=== PATIENT | female | born 1985 | race Caucasian/White ===

== ENCOUNTER 2017-05-20 22:56 | Observation (INO) | payer BC, SELFPAY ==
[2017-05-20 23:03] VITALS: BP 138/110; PULSE 85; RESP 20; TEMP 37.1; O2SAT 99; BMI 34.0
--- NOTE | 2017-05-20 23:24 | HMH.EDPREG ---
ED Disposition Clinical Impression: Abdominal pain Qualifiers: Abdominal location: right lower quadrant Qualified Code(s): R10.31 - Right lower quadrant pain Qualifiers: Weeks of gestation: 20 weeks Qualified Code(s): Z3A.20 - 20 weeks gestation of Disposition: Admitted as Observation Condition on Discharge: Good Referrals: Soham Le MD [Primary Care Provider] - - Critical Care Critical Care Time: No Attestation: On , the high probability of a clinically significant, sudden or life threatening deterioration of the following system(s) required my full and direct attention, intervention and personal management. The time I documented below is in addition to time spent performing reported procedures but includes the following listed in this critical care notation. Medical Decision Making - Medical Records Medical records reviewed: Yes: I reviewed the patient's medical records. Vital Signs: 05/20/17 23:03 05/21/17 00:23 05/21/17 01:16 Temperature 98.7 F Temperature Source Oral Pulse Rate [Right Brachial] 85 82 91 H Respiratory Rate 20 20 18 Blood Pressure [Right Arm] 138/110 98/62 95/49 Blood Pressure Mean [Right Arm] 119 74 64 Blood Pressure Source [Right Arm] Automatic Cuff Automatic Cuff Automatic Cuff Blood Pressure Position [Right Arm] Supine Supine Supine 02 Sat by Pulse Oximetry 99 99 99 Oxygen Delivery Method Room Air Room Air Room Air - Lab Data Lab results reviewed: Yes: I reviewed the patient's lab results. Lab Results 05/20/17 23:30: Urine Color Yellow, Urine Appearance Clear, Urine pH 6.0, Ur Specific [place] 1.020, Urine Protein Negative, Urine Glucose (UA) Negative, Urine Ketones Negative, Urine Blood 2+, Urine Nitrate Negative, Urine Bilirubin Negative, Urine Urobilinogen 0.2, Ur Leukocyte Esterase Negative, Urine RBC 5-10, Urine WBC 3-5, Ur Squamous Epith Cells 3-5, Amorphous Sediment 1+, Urine Bacteria 1+, Urine Mucus 1+ 05/20/17 23:30: WBC 13.4 H, RBC 3.84 L, Hgb 12.7, Hct 36.4 L, MCV 94.7, MCH 33.0 H, MCHC 34.9, RDW 13.5, Plt Count 365, MPV 7.2 L, Neut % (Auto) 76.2, Lymph % (Auto) 19.1, [place] % (Auto) 2.8, Eos % (Auto) 1.7, Baso % (Auto) 0.3, Neut # (Auto) 10.2 H, Lymph # (Auto) 2.6, [place] # (Auto) 0.4, Eos # (Auto) 0.2, Baso # (Auto) 0.0 05/20/17 23:30: Sodium 137, Potassium 3.9, Chloride 105, Carbon Dioxide 23, Anion Gap 12.9, BUN 10, Creatinine 0.76, Estimated Creat Clear 136, Estimated GFR > 60, Est GFR ( Amer) > 60, Glucose 139 H, Calcium 8.6, Total Bilirubin 0.4, AST 16, ALT 23, Alkaline Phosphatase 90, Total Protein 6.6, Albumin 2.8 L, Globulin 3.8 H, Albumin/Globulin Ratio 0.7 L Result diagrams: 05/20/17 23:30 05/20/17 23:30 Orders (Tests/Meds): ED MEDICATIONS Generic Name Dose Route Start Last Admin Trade Name Freq PRN Reason Stop Dose Admin Sodium Chloride 10 ml 05/20/17 23:18 Saline Flush 10ml Syringe IV 06/19/17 23:17 NEEDED PRN Maintain IV Site Discontinued Medications Generic Name Dose Route Start Last Admin Trade Name Freq PRN Reason Stop Dose Admin Morphine Sulfate 5 mg 05/21/17 00:05 05/21/17 00:18 Morphine 10mg/Ml Syringe IV 05/21/17 00:06 5 mg ONCE ONE Administration Promethazine HCl 12.5 mg 05/21/17 00:07 05/21/17 00:15 Phenergan 25mg/Ml 1ml Vial IV 05/21/17 00:08 12.5 mg ONCE ONE Administration Sodium Chloride 25 ml 05/21/17 00:07 Sod Chloride 0.9% 25ml Bag IV 05/21/17 00:08 ONCE ONE Sodium Chloride 0 ml 05/21/17 00:08 05/21/17 00:13 Sod Chloride 0.9% 1000ml Bag IV 05/21/17 00:09 3,000 ml BOLUS ONE Administration - Physician Consults Physician Consulted: shay Time: 01:34 Reason -: Admission - Minor Inquiry Pt receiving controlled substance: No HPI - General Chief complaint: Abdominal Pain Stated complaint: 20 wk pred Abd Pains Time Seen by Provider: 05/20/17 23:24 Mode of Arrival: Ambulatory Source of Informat
[2017-05-20 23:38] LABS: Basophils % 0.3 % (0.1-2.0); Eosinophils # 0.2 K/mm3 (0.0-0.4); Eosinophils % 1.7 % (0.1-12.0); Hematocrit 36.4 % (37.0-47.0); Hemoglobin 12.7 g/dL (12.2-16.2); Lymphocytes # 2.6 K/mm3 (0.7-4.5); Lymphocytes % 19.1 K/mm3 (10-50); Mean Corpuscular HGB Conc 34.9 g/dL (31.8-35.4); Mean Corpuscular Volume 94.7 fl (81-99); Mean Platelet Volume 7.2 fl (7.4-10.4); Monocytes # 0.4 K/mm3 (0.1-1.0); Monocytes % 2.8 % (1.7-9.3); Neutrophils # 10.2 K/mm3 (1.8-7.8); Neutrophils % 76.2 % (37.0-80.0); Platelet Count 365 K/mm3 (142-424); Red Blood Count 3.84 M/mm3 (4.20-5.40); Red Cell Distribution Width 13.5 % (11.5-17.5); White Blood Count 13.4 K/mm3 (4.8-10.8)
[2017-05-20 23:40] LABS: Microscopic, Urine URINE MICROSCOPIC (MICROSCOPIC)
[2017-05-20 23:41] LABS: Appearance,Urine CLEAR (Clear); Bilirubin,Urine Negative (Negative); Blood, Urine 2+ (Negative); Color,Urine YELLOW (Yellow); Glucose,Urine (UA) Negative (Negative); Ketones,Urine Negative (Negative); Leukocyte Esterase,Urine Negative (Negative); Nitrate,Urine Negative (Negative); Protein,Urine Negative (Negative); Urobilinogen,Urine 0.2 EU/dl (0.2)
[2017-05-20 23:52] LABS: Alanine Aminotransferase 23 U/L (12-78); Albumin Level 2.8 gm/dL (3.4-5.0); Albumin/Globulin Ratio 0.7 (1.1-1.8); Alkaline Phosphatase 90 U/L (46-116); Anion Gap 12.9 mEq/L (5-15); Aspartate Amino Transferase 16 U/L (15-37); Bilirubin,Total 0.4 mg/dL (0.2-1.0); Blood Urea Nitrogen 10 mg/dL (7-18); Calcium 8.6 mg/dL (8.5-10.1); Carbon Dioxide 23 mmol/L (21.0-32.0); Chloride 105 mmol/L (98-107); Creatinine Clearance Estimated 136 mg/ml (0-300); Creatinine,Serum 0.76 mg/dL (0.55-1.02); Estimated Glomerular Filt Rate > 60 ml/min (>60); GFR (African American) > 60 ML/MIN (>60); Globulin 3.8 gm/dl (1.3-3.2); Glucose 139 mg/dL (74-106); Potassium 3.9 mmoL/L (3.5-5.1); Sodium 137 mmol/L (136-145); Total Protein,Serum 6.6 gm/dL (6.4-8.2)
--- NOTE | 2017-05-21 | US_ITS ---
US OB >= 14 weeks Fetus: INDICATION: 20 week anatomy scan ITS.REASON: ANATOMY SCAN ORDERING PHYSICIAN: Dinesh Rogers MD PATIENT AGE: 32 years TECHNIQUE: ultrasound transabdominal scanning. COMPARISON: No previous relevant studies. FINDINGS: Single viable intrauterine gestation. Cephalic position. Placenta: Anterior placenta grade 1. There is average amount fluid. The cervix appears satisfactory. Closed and measuring 5 cm. There is some increased echogenicity along the lower aspect of the endocervical canal in length. Complete survey performed and was unremarkable on the submitted images as in PACS. No discrete anomalies identified on survey imaging by technologist. Active fetus. Three-vessel cord with satisfactory umbilical cord insertion. 4- chamber heart noted. Survey of brain & ventricles. Face and neck survey unremarkable. Diaphragm and chest views unremarkable. Abdomen: Both kidneys noted and unremarkable. Stomach noted and satisfactory. Spine: Survey of the spine satisfactory with no anomalies identified nor imaged. Both arms and legs noted. Amniotic Fluid: Adequate. Maternal adnexa: No significant findings. Measurements: Average ultrasound age 20 weeks 2 days. Gestational Age 19 weeks 6 days. Estimated due date by ultrasound age 510/06/2017. Estimated weight 337 grams. This is 65th percentile based on last menstrual period BPD = 20 weeks 1 day OFD = 21 weeks 0 days HC = 20 weeks 0 days AC = 20 weeks 4 days FL = 20 weeks 0 days Heart Rate = 153 BPM Cerebellum = 20 weeks 2 days Humerus = 20 weeks 5 days HC/AC is 1.14. CI is 74%. FL/BPD is 68%. FL/AC is 21%. IMPRESSION: There is a single live fetus and supine presentation with an average ultrasound age of 20 weeks 2 days and estimated due date of 10/06/2017. No obvious anomalies. All parameters correlate. Please see above for detail
[2017-05-21 00:07] LABS: Amorphous Sediment,Urine 1+ /lpf; Bacteria,Urine 1+ /lpf; Mucus,Urine 1+ /lpf
[2017-05-21 00:23] VITALS: BP 98/62; PULSE 82; RESP 20; O2SAT 99
--- NOTE | 2017-05-21 01:15 | PC.NURSE ---
CASE DISCUSSED WITH DR NUNEZ. TO BE ADMITTED ENRI[facility] TO ENRIQUE WITH DX ABDOMINAL PAIN
[2017-05-21 01:16] VITALS: BP 95/49; PULSE 91; RESP 18; O2SAT 99
--- NOTE | 2017-05-21 01:58 | PC.NURSE ---
TO BE ADMITTED TO ROOM 279. REPORT GIVEN TO GURDEEP LINDSEY RN. TRANSFERRED TO ROOM PER W/C. CONDITION STABLE.
[2017-05-21 01:59] VITALS: BP 95/49; PULSE 91; RESP 20; O2SAT 99
--- NOTE | 2017-05-21 02:03 | US_ITS ---
US retroperitoneal comp HISTORY: Right-sided flank pain ITS.REASON: renal colic ORDERING PHYSICIAN: Dinesh Rogers MD PATIENT AGE: 32 years COMPARISON: None FINDINGS: RIGHT KIDNEY:Unremarkable. Normal size and echogenicity. There is mild ectasia of the right renal collecting system. LEFT KIDNEY:Unremarkable. No hydronephrosis. Normal size and echogenicity. OTHER FINDINGS: No other pertinent findings IMPRESSION: Mild dilatation of the right renal collecting system otherwise negative bilateral renal ultrasound
[2017-05-21 02:59] VITALS: BP 104/65; PULSE 95; RESP 18; TEMP 36.9; O2SAT 97; BMI 34.0
[2017-05-21 07:35] LABS: Basophils % 0.2 % (0.1-2.0); Eosinophils # 0.2 K/mm3 (0.0-0.4); Eosinophils % 1.2 % (0.1-12.0); Hematocrit 32.1 % (37.0-47.0); Lymphocytes # 3.3 K/mm3 (0.7-4.5); Lymphocytes % 24.5 K/mm3 (10-50); Mean Corpuscular HGB Conc 34.1 g/dL (31.8-35.4); Mean Corpuscular Hemoglobin 32.4 pg (27.0-31.2); Mean Corpuscular Volume 95.2 fl (81-99); Mean Platelet Volume 7.3 fl (7.4-10.4); Monocytes # 0.5 K/mm3 (0.1-1.0); Monocytes % 3.7 % (1.7-9.3); Neutrophils # 9.4 K/mm3 (1.8-7.8); Neutrophils % 70.4 % (37.0-80.0); Platelet Count 314 K/mm3 (142-424); Red Blood Count 3.38 M/mm3 (4.20-5.40); Red Cell Distribution Width 13.4 % (11.5-17.5); White Blood Count 13.3 K/mm3 (4.8-10.8)
[2017-05-21 07:52] LABS: Hemoglobin 11.1 g/dL (12.2-16.2)
--- NOTE | 2017-05-21 09:12 | HMH.ACPN ---
Internal Medicine - PN: Subj *Date: 05/21/17 *Time: 09:12 Interval history: She was seen in the ER last night and was having severe right lower quadrant pain. She did receive 1 dose of morphine. She is doing better this morning. She has a history of kidney stones. Exam Vital signs and Labs for Last 24 Hours: Temp Pulse Resp BP Pulse Ox 98.5 F 95 H 18 104/65 97 05/21/17 02:59 05/21/17 02:59 05/21/17 02:59 05/21/17 02:59 05/21/17 02:59 Short CBC 05/21/17 Range/Units 06:22 WBC 13.3 H (4.8-10.8) K/mm3 Hgb 11.1 L D (12.2-16.2) g/dL Hct 32.1 L (37.0-47.0) % Plt Count 314 (142-424) K/mm3 no acute distress - *Routine Abdominal Exam Present: soft (She is a little tender along the round ligaments bilaterally)
--- NOTE | 2017-05-21 13:44 | P.DS_ITS ---
General - General Admission date: 05/21/17 Discharge date: 05/21/17 HPI HPI: She was admitted last night with flank pain and right lower quadrant pain. She had 2+ but in her urine. As result of her right lower quadrant pain she was admitted for observation. Objective Vital signs: Temp Pulse Resp BP Pulse Ox 98.5 F 95 H 18 104/65 97 05/21/17 02:59 05/21/17 02:59 05/21/17 02:59 05/21/17 02:59 05/21/17 02:59 no acute distress Hospital Course Hospital Course: She had an ultrasound of her flanks that were normal. There was some mild hydronephrosis on the results of a complete ultrasound of the fetus was done as well and the anatomy was normal. She is feeling better. Results Labs on day of discharge: Labs from last 24 hours 05/21/17 06:22 WBC 13.3 H RBC 3.38 L Hgb 11.1 L D Hct 32.1 L MCV 95.2 MCH 32.4 H MCHC 34.1 RDW 13.4 Plt Count 314 MPV 7.3 L Neut % (Auto) 70.4 Lymph % (Auto) 24.5 [place] % (Auto) 3.7 Eos % (Auto) 1.2 Baso % (Auto) 0.2 Neut # (Auto) 9.4 H Lymph # (Auto) 3.3 [place] # (Auto) 0.5 Eos # (Auto) 0.2 Baso # (Auto) 0.0 DS: Diagnosis - Discharge Diagnosis (1) Abdominal pain Status: Acute (2) Status: Acute Meds Home Medications Medication Instructions Recorded Confirmed Type Prenat Vit Comb.10/Iron/FA/Dha 1 each PO DAILY 05/20/17 05/20/17 History [Vitafol-Ob+Dha Combo Pack] Allergies Allergy/AdvReac Type Severity Reaction Status Date / Time From Penicillin V Potassium Allergy Unknown Uncoded 05/06/17 14:42 Penicillin Allergy Unknown Uncoded 05/06/17 14:42 Disposition Disposition: Home, Self-Care
== END 2017-05-21 14:45 | disposition home or self-care (01) ==
LOC: ER 05-21 01:37 → OB 05-21 01:48
PROVIDERS: Admitting Provider Nurse Practitioner Obstetrics & Gynecology; Emergency Provider Emergency Medicine; Family Provider Internal Medicine Adolescent Medicine; PCP Internal Medicine Adolescent Medicine; Visit Provider Nurse Practitioner Obstetrics & Gynecology
DX: O26.892 Other specified pregnancy related conditions, second trimester (principal); Z3A.20 20 weeks gestation of pregnancy; R10.31 Right lower quadrant pain; N13.30 Unspecified hydronephrosis; Z87.442 Personal history of urinary calculi
CPT/HCPCS: 76770; 76805; 80053; 81001; 85025; 99284; G0378

== ENCOUNTER → 2017-07-05 08:36 | Outpatient (CLI) | payer BC, SELFPAY ==
[2017-07-05 10:40] LABS: Glucose 1 Hour 177 mg/dL
== END ==
PROVIDERS: PCP Internal Medicine Adolescent Medicine; Visit Provider Nurse Practitioner Obstetrics & Gynecology
DX: Z34.90 Encounter for supervision of normal pregnancy, unspecified, unspecified trimester (principal)
CPT/HCPCS: 36415

== ENCOUNTER → 2017-07-07 12:10 | Outpatient (CLI) | payer BC, SELFPAY ==
[2017-07-07 15:30] VITALS: BP 122/68; PULSE 84; RESP 20; TEMP 36.6; O2SAT 98
== END ==
PROVIDERS: Family Provider Internal Medicine Adolescent Medicine; PCP Internal Medicine Adolescent Medicine; Visit Provider Nurse Practitioner Obstetrics & Gynecology
DX: Z34.90 Encounter for supervision of normal pregnancy, unspecified, unspecified trimester (principal)
CPT/HCPCS: 36415; 96372; J2790

== ENCOUNTER → 2017-07-12 07:53 | Outpatient (CLI) | payer BC, SELFPAY ==
[2017-07-12 08:11] LABS: Glucose,Fasting 86 mg/dL (60-105)
[2017-07-12 10:19] LABS: Glucose 1 Hour 180 mg/dL (74-106)
[2017-07-12 10:42] LABS: Glucose 2 Hour 161 mg/dL (74-106)
[2017-07-12 11:36] LABS: Glucose 3 Hour 68 mg/dL (74-106)
== END ==
PROVIDERS: Visit Provider Nurse Practitioner Obstetrics & Gynecology
DX: Z34.90 Encounter for supervision of normal pregnancy, unspecified, unspecified trimester (principal)
CPT/HCPCS: 81002; 82951; 82952

== ENCOUNTER 2017-08-20 14:19 | Outpatient (CLI) | payer BC, SELFPAY ==
[2017-08-20 14:43] VITALS: BMI 37.0
[2017-08-20 14:44] VITALS: BP 126/69; PULSE 103; RESP 16; TEMP 36.7; O2SAT 96; BMI 37.0
== END 2017-08-20 15:01 | disposition home or self-care (01) ==
LOC: OBOUT 14:26 → OB 14:39
PROVIDERS: PCP Nurse Practitioner Obstetrics & Gynecology; Referring Provider Nurse Practitioner Obstetrics & Gynecology; Visit Provider Nurse Practitioner Obstetrics & Gynecology
DX: Z34.90 Encounter for supervision of normal pregnancy, unspecified, unspecified trimester (principal)
CPT/HCPCS: 96372

== ENCOUNTER 2017-08-21 18:18 | Outpatient (CLI) | payer BC, SELFPAY ==
[2017-08-21 19:57] VITALS: BP 115/76; PULSE 99; RESP 16; TEMP 36.8; O2SAT 100
== END 2017-08-21 19:20 | disposition home or self-care (01) ==
LOC: OBOUT 18:22 → OB 18:24
PROVIDERS: PCP Nurse Practitioner Obstetrics & Gynecology; Visit Provider Nurse Practitioner Obstetrics & Gynecology
DX: O24.410 Gestational diabetes mellitus in pregnancy, diet controlled (principal); O40.3XX0 Polyhydramnios, third trimester, not applicable or unspecified; Z3A.33 33 weeks gestation of pregnancy
CPT/HCPCS: 96372

== ENCOUNTER → 2017-09-08 19:38 | Outpatient (REF) | payer BC, SELFPAY | LOC: LAB 19:38 | PROVIDERS: Visit Provider Nurse Practitioner Obstetrics & Gynecology | DX: Z34.90 Encounter for supervision of normal pregnancy, unspecified, unspecified trimester (principal) | CPT/HCPCS: 86403 ==

== ENCOUNTER 2017-09-12 17:50 | Outpatient (CLI) | payer BC, SELFPAY ==
[2017-09-12 18:20] VITALS: BP 140/74; PULSE 100; RESP 20; TEMP 36.8; O2SAT 97; BMI 37.8
[2017-09-12 20:01] LABS: Microscopic, Urine URINE MICROSCOPIC (MICROSCOPIC)
[2017-09-12 20:03] LABS: Appearance,Urine CLEAR (Clear); Bilirubin,Urine Negative (Negative); Blood, Urine TRACE-I (Negative); Color,Urine YELLOW (Yellow); Glucose,Urine (UA) Negative (Negative); Ketones,Urine 2+ (Negative); Leukocyte Esterase,Urine TRACE (Negative); Nitrate,Urine Negative (Negative); PH,Urine 6.5 (5.0-8.5); Protein,Urine Negative (Negative); Urobilinogen,Urine 0.2 EU/dl (0.2)
[2017-09-12 20:09] LABS: Bacteria,Urine 2+ /lpf; RBC,Urine Occasional #/hpf (0-3); WBC,Urine Occasional #/hpf (0-3)
[2017-09-12 20:13] LABS: Amphetamine/Metha Screen,Urine Negative ng/mL (<1000); Barbiturates Screen,Urine Negative ng/mL (<200); Benzodiazepines Screen,Urine Negative ng/mL (200); Cannabinoid Screen,Urine Negative ng/mL (<50); Cocaine Screen,Urine Negative ng/g (<300); Methadone Screen,Urine Negative ng/mL (<300); Opiate Screen,Urine Negative ng/mL (<300); Phencyclidine Screen,Urine Negative ng/mL (<25)
== END 2017-09-12 22:09 | disposition home or self-care (01) ==
LOC: OBOUT 17:51 → OB 17:51
PROVIDERS: PCP Internal Medicine Adolescent Medicine; Visit Provider Obstetrics & Gynecology
DX: O47.00 False labor before 37 completed weeks of gestation, unspecified trimester (principal); Z3A.36 36 weeks gestation of pregnancy
CPT/HCPCS: 59025; 80305; 81001; 87086; 96360; 96361; 96372; J0595

== ENCOUNTER 2017-09-29 22:35 | Inpatient (IN) | payer BC, SELFPAY ==
[2017-09-29 21:54] VITALS: BMI 36.3
[2017-09-29 22:12] LABS: Microscopic, Urine URINE MICROSCOPIC (MICROSCOPIC)
[2017-09-29 22:13] LABS: Appearance,Urine CLEAR (Clear); Bilirubin,Urine Negative (Negative); Blood, Urine 2+ (Negative); Color,Urine YELLOW (Yellow); Glucose,Urine (UA) Negative (Negative); Ketones,Urine Negative (Negative); Leukocyte Esterase,Urine TRACE (Negative); Nitrate,Urine Negative (Negative); PH,Urine 6.5 (5.0-8.5); Protein,Urine Negative (Negative); Specific Gravity, Urine <= 1.005 (1.005-1.030); Urobilinogen,Urine 0.2 EU/dl (0.2)
[2017-09-29 22:14] VITALS: BP 146/83; PULSE 110; RESP 18; TEMP 37.1; O2SAT 97; BMI 36.3
[2017-09-29 22:24] LABS: Fetal Membrane Rupture (Rapid) Positive (Negative)
[2017-09-29 22:31] LABS: Bacteria,Urine 1+ /lpf; Squamous Epithelial Cell,Urine 20-50 #/hpf (0-5)
[2017-09-29 23:12] LABS: Basophils % 0.2 % (0.1-2.0); Eosinophils # 0.3 K/mm3 (0.0-0.4); Eosinophils % 2.1 % (0.1-12.0); Hematocrit 33.9 % (37.0-47.0); Hemoglobin 11.6 g/dL (12.2-16.2); Lymphocytes # 3.7 K/mm3 (0.7-4.5); Lymphocytes % 23.7 K/mm3 (10-50); Mean Corpuscular HGB Conc 34.4 g/dL (31.8-35.4); Mean Corpuscular Hemoglobin 31.6 pg (27.0-31.2); Mean Platelet Volume 6.9 fl (7.4-10.4); Monocytes # 0.5 K/mm3 (0.1-1.0); Monocytes % 3.4 % (1.7-9.3); Neutrophils # 10.9 K/mm3 (1.8-7.8); Neutrophils % 70.6 % (37.0-80.0); Platelet Count 463 K/mm3 (142-424); Red Blood Count 3.68 M/mm3 (4.20-5.40); White Blood Count 15.4 K/mm3 (4.8-10.8)
[2017-09-29 23:15] LABS: POC Glucose,Bedside 85 (70-110)
[2017-09-29 23:19] LABS: MANUAL DIFFERENTIAL MANUAL DIFFERENTIAL (MANUAL DIFF)
[2017-09-30 00:17] LABS: Anisocytosis 1+; Eosinophils % 2 % (0-3); Lymphocytes % 28 % (10-50); Monocytes % 1 % (2-9); Neutrophils % 69 % (42-76); Platelet Estimate Normal; Total Cells Counted 100
[2017-09-30 04:54] LABS: POC Glucose,Bedside 96 (70-110)
--- NOTE | 2017-09-30 08:05 | HMH.OBAPHP ---
OB - H&P: HPI Antepartum - History of Present Illness Chief complaint: Contractions, gestational diabetes History of present illness: She is a 32-year-old 3 para 2 who was 37+ weeks gestational age. She came in having regular contractions every 2 minutes. She is also a gestational diabetic that is diet controlled. - History of Present Criteria for establishing EDC:: LMP confirmed by 1st trimester US care: good care Ultrasounds: normal 1st trimester US, normal mid trimester US Obstetrical complications: gestational diabetes Medical complications: none [facility] History I have reviewed the patient's past medical history: Yes Medical History: Denies:: Cancer, Diabetes Mellitus Type 1, Diabetes Mellitus Type 2, MRSA Other Surgeries: No: Amputation: No Fractures: No - *Social History Smoking Status: Former smoker Tobacco Type: cigarettes Alcohol Intake: never Substance Use Type: denies use Occupational Status: employed Housing: house Household Members: spouse, children *Family Hx:: Hypertension, Hyperlipidemia, Cancer, Diabetes Para: 2 Review of Systems - Review of Systems Review of systems:: pertinent systems reviewed and negative unless documented below Meds Home Medications Medication Instructions Recorded Confirmed Type Prenat Vit Comb.10/Iron/FA/Dha 1 each PO DAILY 05/20/17 09/29/17 History [Vitafol-Ob+Dha Combo Pack] Blood Sugar Diagnostic [Blood 0 katty .ROUTE .MEDSUPPLY 08/20/17 09/29/17 History Glucose Test Strip] Ferrous Sulfate [Ferrous Sulfate 325 mg PO DAILY 08/20/17 09/29/17 History 325mg Tablet] Lancets 0 syr .ROUTE .MEDSUPPLY 08/20/17 09/29/17 History Allergies Allergy/AdvReac Type Severity Reaction Status Date / Time Penicillins Allergy Unknown Verified 09/25/17 09:27 allergy reaction OB - H&P: Exam - Physical Exam Vital signs: Temp Pulse Resp BP Pulse Ox 98.7 F 110 H 18 146/83 97 09/29/17 22:14 09/29/17 22:14 09/29/17 22:14 09/29/17 22:14 09/29/17 22:14 - Constitutional no acute distress - Routine HEENT Exam Head: Present: normocephalic - Routine Neck Exam Present: supple - Routine Respiratory Exam Comments: She is breathing normally and is in no respiratory distress. - Routine Exam Comments: Her cervix is 4 cm dilated and 75% effaced. The head is -3. I inserted and IUPC and clip. I ruptured her membranes and there was thin meconium. - Routine Skin Exam Present: intact - Routine Neurological Exam Present: alert - Routine Psychiatric Exam Present: normal affect OB - Results - Labs Labs: Short CBC 09/29/17 Range/Units 22:55 WBC 15.4 H (4.8-10.8) K/mm3 Hgb 11.6 L (12.2-16.2) g/dL Hct 33.9 L (37.0-47.0) % Plt Count 463 H (142-424) K/mm3 Urine 09/29/17 Range/Units 21:51 Urine Color Yellow (Yellow) Urine Appearance Clear (Clear) Urine pH 6.5 (5.0-8.5) Ur Specific [place] <= 1.005 (1.005-1.030) Urine Protein Negative (Negative) Urine Glucose (UA) Negative (Negative) OB - A/P Antepartum (1) Gestational diabetes Current visit: No Status: Acute - Additional Plan Planning to breastfeed?: Yes Plan: expectant management Additional Information:: She has had her membranes ruptured with thin meconium. We will have Dr. Loera available for the delivery. She has an epidural and we will expect a vaginal delivery.
--- NOTE | 2017-09-30 08:08 | P.HP_ITS ---
OB - H&P: HPI Antepartum - History of Present Illness Chief complaint: Contractions, gestational diabetes History of present illness: She is a 32-year-old 3 para 2 who was 37+ weeks gestational age. She came in having regular contractions every 2 minutes. She is also a gestational diabetic that is diet controlled. - History of Present Criteria for establishing EDC:: LMP confirmed by 1st trimester US care: good care Ultrasounds: normal 1st trimester US, normal mid trimester US Obstetrical complications: gestational diabetes Medical complications: none [facility] History I have reviewed the patient's past medical history: Yes Medical History: Denies:: Cancer, Diabetes Mellitus Type 1, Diabetes Mellitus Type 2, MRSA Other Surgeries: No: Amputation: No Fractures: No - *Social History Smoking Status: Former smoker Tobacco Type: cigarettes Alcohol Intake: never Substance Use Type: denies use Occupational Status: employed Housing: house Household Members: spouse, children *Family Hx:: Hypertension, Hyperlipidemia, Cancer, Diabetes Para: 2 Review of Systems - Review of Systems Review of systems:: pertinent systems reviewed and negative unless documented below Meds Home Medications Medication Instructions Recorded Confirmed Type Prenat Vit Comb.10/Iron/FA/Dha 1 each PO DAILY 05/20/17 09/29/17 History [Vitafol-Ob+Dha Combo Pack] Blood Sugar Diagnostic [Blood 0 katty .ROUTE .MEDSUPPLY 08/20/17 09/29/17 History Glucose Test Strip] Ferrous Sulfate [Ferrous Sulfate 325 mg PO DAILY 08/20/17 09/29/17 History 325mg Tablet] Lancets 0 syr .ROUTE .MEDSUPPLY 08/20/17 09/29/17 History Allergies Allergy/AdvReac Type Severity Reaction Status Date / Time Penicillins Allergy Unknown Verified 09/25/17 09:27 allergy reaction OB - H&P: Exam - Physical Exam Vital signs: Temp Pulse Resp BP Pulse Ox 98.7 F 110 H 18 146/83 97 09/29/17 22:14 09/29/17 22:14 09/29/17 22:14 09/29/17 22:14 09/29/17 22:14 - Constitutional no acute distress - Routine HEENT Exam Head: Present: normocephalic - Routine Neck Exam Present: supple - Routine Respiratory Exam Comments: She is breathing normally and is in no respiratory distress. - Routine Exam Comments: Her cervix is 4 cm dilated and 75% effaced. The head is -3. I inserted and IUPC and clip. I ruptured her membranes and there was thin meconium. - Routine Skin Exam Present: intact - Routine Neurological Exam Present: alert - Routine Psychiatric Exam Present: normal affect OB - Results - Labs Labs: Short CBC 09/29/17 Range/Units 22:55 WBC 15.4 H (4.8-10.8) K/mm3 Hgb 11.6 L (12.2-16.2) g/dL Hct 33.9 L (37.0-47.0) % Plt Count 463 H (142-424) K/mm3 Urine 09/29/17 Range/Units 21:51 Urine Color Yellow (Yellow) Urine Appearance Clear (Clear) Urine pH 6.5 (5.0-8.5) Ur Specific [place] <= 1.005 (1.005-1.030) Urine Protein Negative (Negative) Urine Glucose (UA) Negative (Negative) OB - A/P Antepartum (1) Gestational diabetes Current visit: No Status: Ac
--- NOTE | 2017-09-30 10:05 | HMH.ANESCL ---
[facility] Anesthesia Checklist - Structural Data Admitted From: Home Planned Operative Procedure/s: labor epidural Consent for Planned Operative Procedure(s) Verified: Yes - Airway Assessment C-Spine Mobility Assessed: Yes TMJ Mobility Assessed: Yes Dentition: Good Dentition - Neurological Assessment Level of Consciousness: Awake, Alert, Appropriate - Anesthesia Plan Anesthesia Risk discussed: Yes Anesthesia Plan: Verified ASA Class: II Anesthesia Type: Epidural [facility] Anesthesia HX I have reviewed the patient's past medical history: Yes Medical History: Denies:: Cancer, Diabetes Mellitus Type 1, Diabetes Mellitus Type 2, MRSA Other Surgeries: No: Amputation: No Fractures: No *Family Hx:: Hypertension, Hyperlipidemia, Cancer, Diabetes
--- NOTE | 2017-09-30 11:04 | HMH.LABNOT ---
Labor Note - Subjective: Date: 09/30/17 Time: 11:04 regular contraction - Objective: NST:: Reactive Contractions:: every 2-3 minutes Cervical Dilation:: 9-10 Effacement:: 100% Station: 0 Membranes: articially ruptured - Fetus: Monitoring?: Yes monitoring type:: Internal - Assessment: Labor progressing?: Yes Cephalopelvic disproportion?: No Patient Problems: All Active Problems Gestational diabetes (Acute) Abdominal pain (Acute) (Acute) - Plan: Anesthesia for epidural?: Yes Continue to labor down?: Yes Plan for ?: No Continue to monitor?: Yes Start pushing?: No Comment:: She is doing well. She does have some early decelerations with contractions. She just has an anterior lip although the baby's head is still slightly high. We will have her bear down with contractions. She does feel a lot of pressure.
[2017-09-30 12:11] LABS: Cord Blood PH 7.33 (7.35-7.45)
--- NOTE | 2017-09-30 12:22 | HMH.DN ---
- Delivery Note Delivery Date:: 09/30/17 Delivery Time:: 11:57 Anesthesia Type: Epidural Was labor medically induced?: No Induction method: none Gestational age (weeks): 37 delivered prior to 39 weeks?: Yes Justification for early elective delivery:: Active Labor Infant Gender: Female at 1 minute: 8 at 5 minutes: 9 AF:: Thin meconium Delivery Procedure:: She is a 32-year-old 3 para 2 who was 37-1/2 weeks gestational age. She came in in active labor with regular contractions every 2 minutes. Her cervix had changed to 3 cm. She had her membranes ruptured on the morning of September 30, 2017 and there was thin meconium. Under labor epidural she progressed to full dilation and delivered spontaneously a liveborn female child at 11:57 AM on the morning of September 30, 2017. On deliver the head it was noted that there was a loose nuchal cord. This was easily reduced. Using a DeLee suction I suctioned the baby's mouth and nares. This was followed by deliver the rest the infant's body atraumatically. The cord was clamped and cut and the was handed off to Dr. Loera who assigned Apgars of 8 at 1 and 9 at 5 minutes. We then obtained cord blood as well as cord pH. The pH is currently pending. Using gentle traction on the cord and countertraction on the fundus I was able to easily deliver the placenta intact. He had a normal three-vessel cord. There were no perineal or vaginal lacerations. Her estimated blood loss was approximately 400 cc. Placental Delivery Description: Spontaneous
[2017-09-30 19:30] VITALS: BP 116/59; PULSE 86; RESP 18; TEMP 36.8; O2SAT 99
[2017-10-01 05:46] LABS: Hematocrit 28.8 % (37.0-47.0); Hemoglobin 10.1 g/dL (12.2-16.2)
--- NOTE | 2017-10-01 07:29 | HMH.ACPN2 ---
Internal Medicine - PN: Subj *Date: 10/01/17 *Time: 07:29 Interval history: She is doing very well today. She is eating and taking and ambulating. She is breast-feeding. Her lochia is normal. Exam Vital signs and Labs for Last 24 Hours: Temp Pulse Resp BP Pulse Ox 98.2 F 86 18 116/59 99 09/30/17 19:30 09/30/17 19:30 09/30/17 19:30 09/30/17 19:30 09/30/17 19:30 Laboratory Results - last 24 hr 09/30/17 12:00: Cord ABG pH 7.33 L 10/01/17 05:20: Hgb 10.1 L, Hct 28.8 L 10/01/17 05:20: Blood Type A Negative, Antibody Screen Negative, Screen Negative, Baby's Rh Status Positive 10/01/17 07:20: Rhogam Infusion Rhogam release I & O for Last 24 hours: Intake & Output 09/28/17 09/29/17 09/30/17 10/01/17 11:59 11:59 11:59 11:59 Weight 199 lb - Constitutional no acute distress Assessment and Plan (1) Gestational diabetes Current visit: No Status: Acute Qualifiers: Gestational diabetes mellitus control: diet-controlled Trimester: third trimester Qualified Code(s): O24.410 - Gestational diabetes mellitus in , diet controlled Category: Medical Code(s): O24.419 - Gestational diabetes mellitus in , unspecified control - Assessment and plan all Dx Assessment and Plan for all problems:: She continues to do very well. We will plan to send her home tomorrow.
[2017-10-01 07:50] VITALS: BP 123/68; PULSE 79; RESP 18; TEMP 36.6
[2017-10-01 20:15] VITALS: BP 123/77; PULSE 73; RESP 18; TEMP 36.7; O2SAT 98
--- NOTE | 2017-10-02 09:42 | HMH.DCSUM ---
General - General Admission date:: 09/29/17 Discharge date: 10/02/17 HPI HPI: She is a 32-year-old 3 now para 3 who is 38 and 5 weeks gestational age. She came in having regular contractions. Hospital Course Hospital Course: She was having regular contractions was observed overnight. She change her cervix so we elected to rupture membranes and deliver her. She progressed under labor epidural to full dilation and delivered spontaneously a liveborn at 11:56 AM on the morning of September 2017. The baby weighed 7 lbs. 11 oz. and was 20 inches long. She had Apgars of 8 at 1 minute and 9 at 5 minutes. There were no perineal or vaginal lacerations. She has a Rh- blood and did receive RhoGam. She is rubella immune and was group B streptococcus negative. Her flame gouger is Dr. Ugarte. She is discharged home to follow-up with me in a couple of weeks time. She would like a tubal ligation so we will schedule that for 6 weeks out. Objective Vital signs: Temp Pulse Resp BP Pulse Ox 98.1 F 73 18 123/77 98 10/01/17 20:15 10/01/17 20:15 10/01/17 20:15 10/01/17 20:15 10/01/17 20:15 no acute distress DS: Diagnosis - Discharge Diagnosis (1) Gestational diabetes Status: Acute (2) Normal delivery Status: Acute Discharge Plan - Patient Discharge Instructions ACTIVITY: No heavy lifting DIET: continue same diet Patient Instructions: Depression, Hemorrhage, Post Discharge Instructions - Follow up Plan Disposition: Home, Self-Half-Way Medications: Home Medications Medication Instructions Recorded Confirmed Type Prenat Vit Comb.10/Iron/FA/Dha 1 tab PO DAILY 05/20/17 09/30/17 History [Vitafol-Ob+Dha Combo Pack] Blood Sugar Diagnostic [Blood 1 unit MISCELLANE DIRECTED 08/20/17 09/30/17 History Glucose Test Strip] Ferrous Sulfate [Ferrous Sulfate 325 mg PO DAILY 08/20/17 09/29/17 History 325mg Tablet] Lancets 1 syr MISCELLANE DIRECTED 08/20/17 09/30/17 History Prescriptions/Medication Reconciliation: Continue Blood Sugar Diagnostic [Blood Glucose Test Strip] 1 unit MISCELLANE DIRECTED Lancets 1 syr MISCELLANE DIRECTED Ferrous Sulfate [Ferrous Sulfate 325mg Tablet] 325 mg PO DAILY Prenat Vit Comb.10/Iron/FA/Dha [Vitafol-Ob+Dha Combo Pack] 1 tab PO DAILY
--- NOTE | 2017-10-02 09:45 | P.DS_ITS ---
General - General Admission date:: 09/29/17 Discharge date: 10/02/17 HPI HPI: She is a 32-year-old 3 now para 3 who is 38 and 5 weeks gestational age. She came in having regular contractions. Hospital Course Hospital Course: She was having regular contractions was observed overnight. She change her cervix so we elected to rupture membranes and deliver her. She progressed under labor epidural to full dilation and delivered spontaneously a liveborn at 11:56 AM on the morning of September 2017. The baby weighed 7 lbs. 11 oz. and was 20 inches long. She had Apgars of 8 at 1 minute and 9 at 5 minutes. There were no perineal or vaginal lacerations. She has a Rh- blood and did receive RhoGam. She is rubella immune and was group B streptococcus negative. Her shipfitter is Dr. Ugarte. She is discharged home to follow-up with me in a couple of weeks time. She would like a tubal ligation so we will schedule that for 6 weeks out. Objective Vital signs: Temp Pulse Resp BP Pulse Ox 98.1 F 73 18 123/77 98 10/01/17 20:15 10/01/17 20:15 10/01/17 20:15 10/01/17 20:15 10/01/17 20:15 no acute distress DS: Diagnosis - Discharge Diagnosis (1) Gestational diabetes Status: Acute (2) Normal delivery Status: Acute Discharge Plan - Patient Discharge Instructions ACTIVITY: No heavy lifting DIET: continue same diet Patient Instructions: Depression, Hemorrhage, Post Discharge Instructions - Follow up Plan Disposition: Home, Self-Snf Medications: Home Medications Medication Instructions Recorded Confirmed Type Prenat Vit Comb.10/Iron/FA/Dha 1 tab PO DAILY 05/20/17 09/30/17 History [Vitafol-Ob+Dha Combo Pack] Blood Sugar Diagnostic [Blood 1 unit MISCELLANE DIRECTED 08/20/17 09/30/17 History Glucose Test Strip] Ferrous Sulfate [Ferrous Sulfate 325 mg PO DAILY 08/20/17 09/29/17 History 325mg Tablet] Lancets 1 syr MISCELLANE DIRECTED 08/20/17 09/30/17 History Prescriptions/Medication Reconciliation: Continue Blood Sugar Diagnostic [Blood Glucose Test Strip] 1 unit MISCELLANE DIRECTED Lancets 1 syr MISCELLANE DIRECTED Ferrous Sulfate [Ferrous Sulfate 325mg Tablet] 325 mg PO DAILY Prenat Vit Comb.10/Iron/FA/Dha [Vitafol-Ob+Dha Combo Pack] 1 tab PO DAILY
== END 2017-10-02 10:48 | disposition home or self-care (01) | DRG 775 ==
LOC: OBOUT 22:39 → OB 22:39
PROVIDERS: Obstetrics & Gynecology; Admitting Provider Nurse Practitioner Obstetrics & Gynecology; PCP Nurse Practitioner Obstetrics & Gynecology; Visit Provider Nurse Practitioner Obstetrics & Gynecology
DX: O24.420 Gestational diabetes mellitus in childbirth, diet controlled (principal); O69.81X0 Labor and delivery complicated by cord around neck, without compression, not applicable or unspecified; Z88.0 Allergy status to penicillin; Z3A.37 37 weeks gestation of pregnancy; Z37.0 Single live birth
CPT/HCPCS: 36415; 59025; 81001; 82800; 82962; 84112; 85007; 85014; 85018; 85025; 85461; 86850; 94761; C1758; J0595; J2790

== ENCOUNTER → 2019-04-30 15:23 | Outpatient (CLI) | payer BC, SELFPAY ==
[2019-04-30 15:47] LABS: Basophils # 0.1 K/mm3 (0-0.2); Basophils % 0.8 % (0.1-2.0); Eosinophils # 0.3 K/mm3 (0.0-0.4); Eosinophils % 2.6 % (0.1-12.0); Hematocrit 40.6 % (37.0-47.0); Hemoglobin 14.4 g/dL (12.2-16.2); Lymphocytes # 3.8 K/mm3 (0.7-4.5); Lymphocytes % 36.1 % (10-50); Mean Corpuscular HGB Conc 35.5 g/dL (31.8-35.4); Mean Corpuscular Hemoglobin 32.2 pg (27.0-31.2); Mean Corpuscular Volume 90.7 fl (81-99); Mean Platelet Volume 7.5 fl (7.4-10.4); Monocytes # 0.4 K/mm3 (0.1-1.0); Monocytes % 3.9 % (1.7-9.3); Neutrophils # 5.9 K/mm3 (1.8-7.8); Neutrophils % 56.5 % (37.0-80.0); Platelet Count 374 K/mm3 (142-424); Red Blood Count 4.47 M/mm3 (4.20-5.40); White Blood Count 10.4 K/mm3 (4.8-10.8)
[2019-04-30 16:24] LABS: Alanine Aminotransferase 12 U/L (12-78); Albumin Level 3.3 gm/dL (3.4-5.0); Albumin/Globulin Ratio 1.1 (1.1-1.8); Alkaline Phosphatase 97 U/L (46-116); Anion Gap 15.9 mEq/L (5-15); Aspartate Amino Transferase 5 U/L (15-37); Bilirubin,Total 0.4 mg/dL (0.2-1.0); Blood Urea Nitrogen 9 mg/dL (7-18); Calcium 8.6 mg/dL (8.5-10.1); Carbon Dioxide 25 mmol/L (21.0-32.0); Chloride 105 mmol/L (98-107); Creatinine,Serum 0.73 mg/dL (0.55-1.02); Estimated Glomerular Filt Rate 91 ml/min (>60); GFR (African American) 110 ML/MIN (>60); Globulin 3.1 gm/dl (1.3-3.2); Glucose 93 mg/dL (74-106); Potassium 3.9 mmoL/L (3.5-5.1); Sodium 142 mmol/L (136-145); Total Protein,Serum 6.4 gm/dL (6.4-8.2)
== END ==
PROVIDERS: Visit Provider Internal Medicine Adolescent Medicine
DX: R10.84 Generalized abdominal pain (principal)
CPT/HCPCS: 36415; 80053; 85025

== ENCOUNTER 2021-04-20 18:27 | Emergency (ER) | payer BC, SELFPAY ==
[2021-04-20 18:50] VITALS: BP 139/81; PULSE 90; RESP 18; TEMP 36.7; O2SAT 98; BMI 31.1
[2021-04-20 19:05] VITALS: PULSE 72; RESP 18; TEMP 36.8; O2SAT 98; BMI 31.1
--- NOTE | 2021-04-20 19:12 | XR_ITS ---
PROCEDURE INFORMATION: Exam: XR Right Hand Exam date and time: 04/20/2021 7:12 PM Age: 36 years old Clinical indication: Pain; Patient HX: Possible foreign body, thorn , in 4th digit of right hand; Additional info: Foreign obj TECHNIQUE: Imaging protocol: XR Right hand. Views: 3 or more views. COMPARISON: No relevant prior studies available. FINDINGS: Bones/joints: Bones appear intact and normally aligned with normal mineralization. No acute fracture or dislocation. No findings of osteomyelitis; no cortical erosive changes. No significant arthritic deformities. Soft tissues: Mild soft tissue swelling. No radiopaque foreign bodies are seen within the soft tissues. IMPRESSION: 1. No findings of osteomyelitis or fracture. 2. Soft tissue swelling. No definite radiopaque foreign bodies are seen in the soft tissues. Note that thorns and splinter fragments can be low-density and radiographically occult on plain x-ray. If further imaging is warranted by the clinical findings or course CT may help.
--- NOTE | 2021-04-20 19:31 | HMH.EDUTC ---
[facility] [place] Clinical Impression: Right arm cellulitis Disposition: Home, Self-Care Condition on Discharge: Good Instructions: Cellulitis Additional Instructions: Keep the hand and arm clean and dry. Take tylenol or ibuprofen for pain. Follow up with your regular doctor. Take the antibiotics as directed. Watch for worsening swelling, redness, pain etc, follow up or go to the ER for any doubts about worsening symptoms. If you begin to run a fever please return. GO TO THE ER FOR ANY WORSENING SYMPTOMS Stop the amoxicillin that you are already on. Prescriptions: Sulfamethoxazole/Trimethoprim [Bactrim DS tablet] 1 each PO BID 10 Days #20 tab Transmission Status: Received by [id number] cephALEXin [cephALEXin 500mg capsule] 500 mg PO Q6H 10 Days #40 cap Transmission Status: Received by [id number] methylPREDNISolone [Medrol] 4 mg PO DIRECTED 6 Days #21 packet Transmission Status[id number] Referrals: Soham Le MD [Primary Care Provider] - Time of Disposition: 20:01 Medical Decision Making - Medical Records Medical records reviewed: No: I reviewed the patient's medical records. - Minor Inquiry Pt receiving controlled substance: No Vital Signs: 04/20/21 18:50 04/20/21 19:05 04/20/21 19:56 Temperature 98.1 F 98.3 F 98.3 F Temperature Source Oral Oral Pulse Rate 65 Pulse Rate [Right] 90 72 Respiratory Rate 18 18 18 Blood Pressure 139/81 Blood Pressure [Right Arm] 139/81 Blood Pressure Mean [Right Arm] 100 02 Sat by Pulse Oximetry 98 98 Orders (Tests/Meds): ED MEDICATIONS Discontinued Medications Generic Name Dose Route Start Last Admin Trade Name Freq PRN Reason Stop Dose Admin Cephalexin HCl 500 mg 04/20/21 19:50 04/20/21 19:54 Cephalexin 500mg Capsule PO 04/20/21 19:51 500 mg ONCE ONE Administration Trimethoprim/Sulfamethoxazole 1 each 04/20/21 19:51 04/20/21 19:55 Sulfa/Trimethoprim 1 Tablet PO 04/20/21 19:52 1 each ONCE ONE Administration [facility] [place] - General Stated complaint: R arm pain Time Seen by Provider: 04/20/21 19:31 Mode of Arrival: Ambulatory Source of Information: Patient Limitations: No Limitations Description of Symptoms (Recalled from Triage Doc. by RN): pt states she has had a splinter in her R hand for about a wk. she thought she had gotten all the splinters out but now her whole R hand/arm is swollen, red and warm to the touch. pt states she is unable to drive or write bc of the pain. HEENT Symptoms (Recalled from RN notes): No Resp Symptoms (Recalled from RN notes): No Skin Symptoms (Recalled from RN notes): Yes MS Symptoms (Recalled from RN notes): No Functional Status (Recalled from RN notes): wnl - History of Present Illness Provider Complaint: She states that 1 week ago she was picking a plant with red berries and small thorns on it to put on her mother's grave when she got several small thorns in her right ring finger. She pulled them out, but then over the next 2 to 3 days, first her right hand and then her right arm up to above her elbow became very tender, mildly swollen and erythemic. She denies any known open wound. She denies fever or chills. She denies being diabetic. - Related Data Previous Rx's Medication Instructions Recorded Sulfamethoxazole/Trimethoprim 1 each PO BID 10 Days #20 tab 04/20/21 [Bactrim DS tablet] cephALEXin [cephALEXin 500mg 500 mg PO Q6H 10 Days #40 cap 04/20/21 capsule] methylPREDNISolone [Medrol] 4 mg PO DIRECTED 6 Days #21 04/20/21 packet Allergies Allergy/AdvReac Type Severity Reaction Status Date / Time Penicillins Allergy Mild Unknown Verified 07/16/19 10:31 allergy reaction - Worker's Comp Is this a Worker's Comp case?: No [facility] History - Hepatitis A Screen Drug use history?: No High risk sexual behaviors?: No History of sexually transmitted infection?: No Currently e
[2021-04-20 19:56] VITALS: BP 139/81; PULSE 65; RESP 18; TEMP 36.8
== END 2021-04-20 20:05 | disposition home or self-care (01) ==
LOC: ER 18:52 → UTC 18:56
PROVIDERS: Emergency Provider Nurse Practitioner Family; PCP Internal Medicine Adolescent Medicine
DX: L03.113 Cellulitis of right upper limb (principal); F17.210 Nicotine dependence, cigarettes, uncomplicated
CPT/HCPCS: 73130; 99202; G0463

== ENCOUNTER → 2021-04-30 13:32 | Outpatient (CLI) | payer BC, SELFPAY ==
[2021-04-30 14:11] LABS: Basophils # 0.1 K/mm3 (0-0.2); Basophils % 0.5 % (0.1-2.0); Eosinophils # 0.2 K/mm3 (0.0-0.4); Eosinophils % 1.5 % (0.1-12.0); Hematocrit 48.3 % (37.0-47.0); Hemoglobin 16.8 g/dL (12.2-16.2); Lymphocytes # 3.3 K/mm3 (0.7-4.5); Lymphocytes % 22.7 % (10-50); Mean Corpuscular HGB Conc 34.8 g/dL (31.8-35.4); Mean Corpuscular Hemoglobin 32.9 pg (27.0-31.2); Mean Corpuscular Volume 94.5 fl (81-99); Monocytes # 0.5 K/mm3 (0.1-1.0); Monocytes % 3.4 % (1.7-9.3); Neutrophils # 10.4 K/mm3 (1.8-7.8); Neutrophils % 71.8 % (37.0-80.0); Platelet Count 310 K/mm3 (142-424); Red Blood Count 5.12 M/mm3 (4.20-5.40); Red Cell Distribution Width 13.3 % (11.5-17.5); White Blood Count 14.4 K/mm3 (4.8-10.8)
[2021-04-30 15:10] LABS: Alanine Aminotransferase 9 U/L (12-78); Albumin Level 4.4 g/dl (3.5-5.0); Albumin/Globulin Ratio 1.5 (1.1-1.8); Alkaline Phosphatase 91 U/L (38-126); Anion Gap 15.4 mEq/L (5-15); Aspartate Amino Transferase 15 U/L (14-36); Bilirubin,Total 0.6 mg/dl (0.2-1.3); Blood Urea Nitrogen 10 mg/dl (7-17); Calcium 9.7 mg/dl (8.4-10.2); Carbon Dioxide 19 mmol/L (22.0-30.0); Chloride 107 mmol/L (98-107); Estimated Glomerular Filt Rate 112 ml/min (>60); GFR (African American) 136 ML/MIN (>60); Globulin 2.9 g/dL (1.3-3.2); Glucose 89 mg/dl (74-100); Magnesium 1.6 mg/dl (1.6-2.3); Potassium 4.4 mmoL/L (3.5-5.1); Sodium 137 mmol/L (136-145); Total Protein,Serum 7.3 g/dl (6.3-8.2)
[2021-04-30 15:24] LABS: 25-OH Vitamin D, Total 30.8 ng/mL (30-100)
[2021-04-30 15:56] LABS: Vitamin B12 328 pg/mL (239-931)
[2021-04-30 17:36] LABS: Hemoglobin A1C 5.1 % (4.0-6.0)
[2021-05-02 08:16] LABS: HSV 2 IgG, Type Spec <0.91 index (0.00-0.90); Hep A Ab, IgM Negative (Negative); Hepatitis B Core Antibody IgM Negative (Negative); Hepatitis B Surface Antigen Negative (Negative); Hepatitis C Antibody <0.1 s/co ratio (0.0-0.9)
== END ==
PROVIDERS: Visit Provider Internal Medicine Adolescent Medicine
DX: R42 Dizziness and giddiness (principal); R73.9 Hyperglycemia, unspecified; R53.81 Other malaise; R53.83 Other fatigue; L03.90 Cellulitis, unspecified
CPT/HCPCS: 36415; 80053; 80074; 82306; 82607; 83036; 83735; 85025; 86695; 86790

== ENCOUNTER → 2021-05-07 14:47 | Outpatient (CLI) | payer BC, SELFPAY ==
--- NOTE | 2021-05-07 14:52 | CT_ITS ---
PROCEDURE: CT SINUS WO CON CLINICAL HISTORY: RECURRENT SINUSITIS COMPARISON: No exams were available for comparison TECHNIQUE: Axial images obtained with sagittal and coronal reformats. All CT scans at the facility use one or more dose reduction, viz: automated exposure control, ma/kV adjustment per patient size (including targeted exams where dose is matched to indication, i.e. head), or iterative reconstruction technique. FINDINGS: There is mild mucosal thickening of the ethmoid sinus on the left in its mid aspect and posterior aspect. No sinus air-fluid level. The ostiomeatal units are patent. No significant nasal septal deviation. No mastoid effusion. No evidence middle ear fluid the orbits have an unremarkable appearance. Scattered small nodes are present in the neck. IMPRESSION: No evidence of acute sinusitis. Minimal mucosal thickening of the ethmoid air cells on the left questionable clinical significance Dictated by: Fortunato Turner MD 05/08/2021 15:13 Fortunato Turner MD in OV 05/08/2021 15:13
== END ==
PROVIDERS: PCP Internal Medicine Adolescent Medicine; Visit Provider Internal Medicine Adolescent Medicine
DX: J01.01 Acute recurrent maxillary sinusitis (principal)
CPT/HCPCS: 70486

== ENCOUNTER → 2022-09-16 12:16 | Outpatient (CLI) | payer BC, SELFPAY ==
--- NOTE | 2022-09-16 12:24 | XR_ITS ---
FINAL REPORT CLINICAL HISTORY: .pt injurred at work. slipped and felt a araseli. mid thoracic back pain FINDINGS: THORACIC SPINE 2 views were obtained. There is no acute fracture. There is no malalignment. The disc spaces are preserved. There is no soft tissue abnormality. IMPRESSION: No acute bony abnormality. LUMBAR SPINE Five views were obtained. There is no acute fracture. There is no malalignment. The disc spaces are preserved. There is no soft tissue abnormality. There are stones in the right kidney measuring up to 5 mm. IMPRESSION: No acute bony abnormality. Right renal stones. Reviewed, Interpreted and Dictated by Blu Og MD Transcribed by Makenzie Loo Authenticated and [facility]
== END ==
LOC: RAD 12:17
PROVIDERS: PCP Nurse Practitioner Family; Visit Provider Nurse Practitioner Family
DX: S39.012D Strain of muscle, fascia and tendon of lower back, subsequent encounter (principal); S29.019D Strain of muscle and tendon of unspecified wall of thorax, subsequent encounter; M62.838 Other muscle spasm
CPT/HCPCS: 72084

== ENCOUNTER 2022-10-31 14:00 | Outpatient (RCR) | payer OTHER, SELFPAY ==
--- NOTE | 2022-10-01 16:48 | HMH.PTOPEV ---
PT Outpatient Evaluation Rehab PT Outpatient Evaluation Start: 10/01/22 13:59 Freq: Status: Active Protocol: Document 10/01/22 16:27 ZACH (Rec: 10/01/22 16:48 PHORJIM [id number]) E-signed By Bolivar Mendoza, PT Outpatient Therapy Subjective History Subjective History This is the initial PT eval for sanaz Chavarria 37 yowf who presents ~ 2 wks after injury at work to her mid-low back area. She reports she tried to catch a heavy object from falling over and felt immediate pain in her mid back . Pain quickly worsened and moved into her low back as well and she had to leave work due to its severity. She reports she was initially placed on bedrest for several days, but has been trying to increase her mobility now. She Continues to have significant pain in the back, but no radiation of symptoms and no numbness or tingling. Twisting to either side increases her pain the most. No significant PMH. *Oswestry Low Back Pain Disability Score : 21/50 = 42% disability. Chief Complaint Pain Symptom Type Ache,Sharp Symptoms Relieved By Heat,Ice Symptoms Aggravated By Twisting Prior Functional Limitations None Current Functional Limitations Reaching,Lifting,Housework, Sleeping,Recreation Activity Symptom Description Constant but Variable Level of pain today (0-10) 4 Pain scale - at its worst (0-10) 8 Lumbopelvic Eval Posture Thoracic Spine Posture Standing Position Neutral Lumbar Spine Posture Standing Position Neutral Palapation tenderness bilateral thoracic spinal tenderness Yes: 2/4 lumbar spinal tenderness No paraspinal tenderness Yes: 2/4 Accessory Movement T-spine Vertebrae Accessory Movements Central P/A [place] that Elicit Symptoms T10 bilateral T11 bilateral T12 bilateral Range of Motion Lumbar Spine ROM Reason Not Measured Within Functional Limits Manual Muscle Test Bilateral Knee Extension Strength Grade 5 Normal Knee Flexion Strength Grade 5 Normal Hip Flexion Streng
== END 2022-10-31 14:05 | disposition home or self-care (01) ==
LOC: PT 14:00
PROVIDERS: Visit Provider Nurse Practitioner Family
DX: M54.9 Dorsalgia, unspecified (principal); S39.92XA Unspecified injury of lower back, initial encounter
CPT/HCPCS: 97010; 97014; 97110; 97140; 97163; G0283

== ENCOUNTER 2024-08-20 15:45 | Outpatient (CLI) | payer BC, SELFPAY ==
--- NOTE | 2024-08-20 15:48 | MM_ITS ---
PROCEDURE INFORMATION: Exam: MG Bilateral Screening 3D Mammography Exam date and time: 08/20/2024 3:54 PM Age: 39 years old Clinical indication: Screening examination TECHNIQUE: Imaging protocol: Bilateral Screening tomosynthesis and 2D mammography including computer-aided detection (CAD) when performed. COMPARISON: No relevant prior studies available. FINDINGS: MAMMOGRAPHY: Breast composition: The breasts are heterogeneously dense, which may obscure small masses. Mass: No suspicious masses. Architectural distortion: None. Calcifications: No suspicious calcifications. Asymmetric density: None. Skin thickening: None. Axillary adenopathy: None. IMPRESSION: No mammographic evidence of malignancy. Annual screening is recommended unless otherwise clinically indicated. ASSESSMENT: BI-RADS Category 1: Negative.
== END 2024-08-20 23:59 | disposition home or self-care (01) ==
LOC: RAD 15:46
PROVIDERS: PCP Nurse Practitioner Family; Visit Provider Nurse Practitioner Family
DX: Z12.31 Encounter for screening mammogram for malignant neoplasm of breast (principal)
CPT/HCPCS: 77063; 77067

== ENCOUNTER 2024-12-02 11:59 | Day surgery (SDC) | payer BC, SELFPAY ==
[2024-11-30 17:37] VITALS: BMI 32.0
[2024-12-02] VITALS (8 sets, daily range): BP systolic 122–152; BP diastolic 68–97; PULSE 70–92; RESP 16–18; TEMP 36.6–36.7; O2SAT 91–100
--- NOTE | 2024-12-02 12:10 | EXP.HP ---
History of Present Illness *Admission Date: 12/02/24 *Reason for visit:: Abdominal pain, rectal bleeding, personal history of adenomatous polyps *History of present illness: Mrs. Chavarria is a 39-year-old female who is here for diagnostic colonoscopy secondary to bright red rectal bleeding presumably hemorrhoidal. The patient also has some anorectal pain. She also has generalized abdominal pain and history of IBS the examination is deemed medically necessary for diagnostic colonoscopy. The patient has been seen, interviewed and examined prior to the procedure by both myself and the anesthesia provider. [facility] Disclaimer: The information contained in this section may have been updated after the patient was seen, as this information can be updated by other users. Medical History Depression with anxiety PTSD (post-traumatic stress disorder) IBS (irritable bowel syndrome) Hemorrhoids Cardiac arrhythmia Surgical History Hx of removal of cyst H/O tubal ligation Family History Other Coronary artery disease Diabetes Hypertension Social History Smoking Status: Current every day smoker tobacco type: cigarettes packs per day: 1 second hand exposure: Yes alcohol intake: never substance use type: denies use current occupational status: employed Travel in the last 8 weeks?: None household members: spouse and family housing: house current occupation: 3[employer] current occupational exposures/hazards: Yes caffeine: Yes Have you lived/traveled outside [place] in past 30 days?: No Contact w/someone who lives/traveled outside US past 30 days?: No Exposure to someone with infectious disease in past 14 days?: No Do you have a fever (greater than 100.4 F or 38 C)?: No Have you tested positive for COVID-19?: No Exposed to someone with COVID-19 in past 14 days?: No Do you have a sore throat?: No Do you have a cough?: No Do you have any weakness?: No Do you have any diarrhea?: No Are you experiencing any unusual bleeding?: No Do you have any muscle aches/pain?: No Do you have any abdominal pain?: No Are you experiencing loss of taste or smell?: No Other Medical History Have you received the Flu Vaccine for this season: Yes Have you received the Pneumonia Vaccine: No Review of Systems Review of Systems Review of systems (narrative): Negative *Cardiovascular Comments: Negative *Gastrointestinal Comments: Negative *Genitourinary Comments: Negative *Musculoskeletal Comments: Negative *Neurologic Comments: Negative Meds Home Medications and Allergies Home Medications ?Medication ?Instructions ?Recorded ?Confirmed ?Type diosmin complex no.1 630 mg tablet 1 tab PO DAILY #30 tabs 09/27/24 11/30/24 Rx (Vasculera) hydroxyzine pamoate 25 mg capsule 25 mg PO HS PRN Anxiety 09/27/24 11/30/24 History sertraline 50 mg tablet 50 mg PO DAILY 09/27/24 11/30/24 History New Prescriptions to Start Prescriptions: Allergies Allergy/AdvReac Type Severity Reaction Status Date / Time Penicillins Allergy Mild Unknown Verified 11/30/24 14:58 allergy reaction Exam Data for Last 24 hours I & O for Last 24 hours: Intake & Output 11/29/24 11/30/24 12/01/24 12/02/24 23:59 23:59 23:59 23:59 Weight 175 lb *Routine HEENT Exam Head: Present normocephalic Eye: Present EOMI and PERRL ENT: Present mucous membranes moist *Routine Neck Exam Neck: Present supple *Routine Respiratory Exam Respiratory: Present CTA bilaterally *Routine Cardiovascular Exam Cardiovascular: Present RRR *Routine Abdominal Exam Abdominal: Present soft and normoactive bowel sounds; Absent tenderness *Routine Rectal Exam Rectal:: deferred *Routine Genitalia Exam Genitalia:: deferred *Routine Extremities Exam Extremities: Absent cyanosis, clubbing or edema *Routine Skin Exam Skin: Present warm; Absent rash *Routine Neurological Exam Neurological: Present alert and oriented X3 Assessment and Plan *Assessment and plan (1) Bright red blood per rectum: Status: Acute Category: Medical Code(s): K62.5 - Hemorrhage of anus and rectum (2) Rectal pain: Status: Acute Category: Medical Code(s): K62.89 - Other specified diseases of anus and rectum (3) Generalized abdominal pain: Status: Acute Category: Medical Code(s): R10.84 - Generalized abdominal pain (4) IBS (irritable bowel syndrome): Status: Acute Category: Medical Code(s): K58.9 - Irritable bowel syndrome, unspecified (5) History of adenomatous polyp of colon: Status: Acute Category: Medical Code(s): Z86.0101 - Personal history of adenomatous and serrated colon polyps (6) Personal history of adenomatous and serrated colon polyps: Status: Acute Category: Medical Code(s): Z86.0101 - Personal history of adenomatous and serrated colon polyps Plan A/P: 1. Bright red rectal bleeding with hemorrhoidal prolapse is the preprocedural diagnosis. The patient also has had generalized abdominal pain, bloating and bowel irregularity with mixed IBS. The patient also has a personal history of adenomatous colon polyps and her last colonoscopy was 5 years ago. The patient will be anesthetized/sedated using MAC sedation. The patient has been seen and examined. Cardiac and lung assessment prior to the examination is stable. Proceed with planned diagnostic colonoscopy.
[2024-12-02] MEDS: LACTATED RINGERS 1000ML 1,000 ML 50 ML IV (12:26)
[2024-12-02 12:37] LABS: Urine Pregnancy, HCG Qual. Negative (Negative)
--- NOTE | 2024-12-02 12:41 | EXP.ANES.CKL ---
[facility] Disclaimer: The information contained in this section may have been updated after the patient was seen, as this information can be updated by other users. Medical History Depression with anxiety PTSD (post-traumatic stress disorder) IBS (irritable bowel syndrome) Hemorrhoids Cardiac arrhythmia Surgical History Hx of removal of cyst H/O tubal ligation Family History Other Coronary artery disease Diabetes Hypertension Social History Smoking Status: Current every day smoker tobacco type: cigarettes packs per day: 1 second hand exposure: Yes alcohol intake: never substance use type: denies use current occupational status: employed Travel in the last 8 weeks?: None household members: spouse and family housing: house current occupation: 3M current occupational exposures/hazards: Yes caffeine: Yes Have you lived/traveled outside US in past 30 days?: No Contact w/someone who lives/traveled outside US past 30 days?: No Exposure to someone with infectious disease in past 14 days?: No Do you have a fever (greater than 100.4 F or 38 C)?: No Have you tested positive for COVID-19?: No Exposed to someone with COVID-19 in past 14 days?: No Do you have a sore throat?: No Do you have a cough?: No Do you have any weakness?: No Do you have any diarrhea?: No Are you experiencing any unusual bleeding?: No Do you have any muscle aches/pain?: No Do you have any abdominal pain?: No Are you experiencing loss of taste or smell?: No [facility] Anesthesia Checklist Patient Identification Patient Identification: Arm Band and Verbal (Name & ) Structural Data Admitted From: Home Planned Operative Procedure/s: Colonoscopy Verified Documents: Surgical Consent NPO Status Verified Time NPO: 00:00 Additional verifications Anesthesia Reactions: No Hx Blood Transfusions: No Blood Transfusion Reaction: No Airway Assessment Mallampati Score:: Class II C-Spine Mobility Assessed: Yes TMJ Mobility Assessed: Yes Dentition: Good Dentition Neurological Assessment Level of Consciousness: Awake, Alert and Appropriate Hx Seizures: No Numbness or tingling in extremities: No Anesthesia Plan Anesthesia Risk discussed: Yes Anesthesia Plan: Verified ASA Class: II Anesthesia Type: MAC
--- NOTE | 2024-12-02 13:28 | HMH.PROCNOTE ---
[facility] Procedure Note Date: 12/02/24 Time: 13:42 Procedure Note:: Colonoscopy Procedure Report: Colonoscopy with cold snare polypectomy and hemorrhoid band ligation Endoscopist: Pranav Lacy II, MD Referring physician: BERNA Reis Date of Procedure: December 02, 2024 Equipment: Olympus 190 variable stiffness pediatric colonoscope Sedation: MAC sedation Indication: Mrs. Chavarria is a 39-year-old female with bleeding and prolapsing internal hemorrhoids. The patient also has had mixed IBS with alternating constipation and diarrhea. The patient did have a colonoscopy in June 2019 (Lacho Ramirez MD) and had prolapsing grade 3 internal hemorrhoids. She also had 6 polyps (tubular adenomas x 3 and hyperplastic polyps x 3) which were removed. The patient did see a colorectal surgeon (at [facility]) and had a bad experience and this was around the beginning of the COVID pandemic. She does take a fiber tablet daily. She reports no family history of colon cancer. Procedure: Prior to the procedure, a history and physical exam was performed, and patient's medications and allergies were reviewed. The risks, benefits and alternatives of the sedation and procedure were discussed with the patient. All questions were answered and informed consent was obtained. The patient was brought to the procedure room. Patient identification and proposed procedure were verified by the physician and the nurse. The patient was placed in a left lateral decubitus position and the scope was passed under direct vision. Throughout the procedure, the patient's blood pressure, pulse, and oxygen saturations were monitored continuously. The colonoscopy was accomplished without difficulty. The patient tolerated the procedure well. Findings: On digital rectal examination there was normal rectal tone. There were large external hemorrhoidal tags. There were no anal fissures or fistulas. The colonoscope was introduced through the anal canal to the rectum and advanced to the cecum. The ileocecal valve and appendiceal orifice were identified. The scope was advanced a short distance into the ileum which appeared grossly normal. The scope was then withdrawn into the colon. There were 2 diminutive polyps (cecum x 1 (2 to 3 mm) and transverse x 1 (5 mm)). These were both removed via cold snare polypectomy. The remaining cecum, ascending, transverse, descending, sigmoid and rectum were grossly normal. There were no mucosal abnormalities identified. Upon retroflexion within the rectum there were grade 3 prolapsing internal hemorrhoids. 3 columns of hemorrhoids were banded using 4 bands with excellent ligation effect. The preparation was excellent throughout with [place] Preparation Score of 9. The cecal time was 12 minutes. Impression: 1. Diminutive colonic polyps x 2 2. Grade 3 prolapsing internal hemorrhoids status post band ligation x 4 3. External hemorrhoidal tags Plan: I would resume a complete fiber bowel regimen (MiraLAX plus Konsyl) on a long-term daily maintenance basis. I would also recommend oral Vasculera. I will follow-up the polyp histology and recommend repeat surveillance colonoscopy again in 5 years.
[2024-12-02] MEDS: KETOROLAC 30MG/ML VIAL 30 MG IV (13:50)
[2024-12-02] MEDS: HYDROMORPHONE 2MG/ML SYRINGE 0.5 MG IV (14:38)
== END 2024-12-02 15:08 | disposition home or self-care (01) ==
PROVIDERS: PCP Nurse Practitioner Family; Visit Provider Internal Medicine Gastroenterology
PROC: 0DJD8ZZ Inspection of Lower Intestinal Tract, Via Natural or Artificial Opening Endoscopic (ICD-10-PCS; CPT 45378; principal; 2024-12-02 13:30)
DX: D12.6 Benign neoplasm of colon, unspecified (principal); K63.5 Polyp of colon; K64.2 Third degree hemorrhoids; K64.4 Residual hemorrhoidal skin tags; F17.210 Nicotine dependence, cigarettes, uncomplicated; Z86.0101 Personal history of adenomatous and serrated colon polyps; Z88.0 Allergy status to penicillin; Z79.899 Other long term (current) drug therapy
CPT/HCPCS: 45385; 45398; 81025; C1889; J1171; J1885; J2003; J2704; J7120